=== PATIENT | male | born 1940 | race Hispanic/Latino ===

== ENCOUNTER 2018-01-14 19:16 | Inpatient (IN) | payer OTHER, MEDICARE ==
[~2018-01-14] VITALS: Ht 180.3 cm; Wt 116.1 kg
[2018-01-14] MEDS ORDERED: ONDANSETRON HCL 4 MG/2 ML VIAL ONE (19:41)
[2018-01-14 19:59] LABS: BASOPHILS % (AUTO) 0.2 % (0.0-5.0); EOSINOPHILS % (AUTO) 0.5 % (0.0-8.0); LYMPHOCYTES % (AUTO) 13.1 % (21.0-51.0); MEAN CORPUSCULAR HEMOGLOBIN 31.8 pg (27.0-33.0); MEAN CORPUSCULAR HGB CONC 33.3 g/dL (32.0-36.0); MEAN CORPUSCULAR VOLUME 95.3 fL (79-99); MONOCYTES % (AUTO) 11.6 % (3.0-13.0); NEUTROPHILS % (AUTO) 74.6 % (40.0-77.0); PLATELET COUNT (AUTO) 166 K/uL (130-400); RED BLOOD CELL COUNT(AUTO) 3.77 MIL/uL (4.50-6.20); RED CELL DISTRIBUTION WIDTH 14.6 % (11.0-15.5); WHITE BLOOD COUNT (AUTO) 7.5 K/uL (4.8-10.8)
[2018-01-14 20:02] LABS: CREATININE 0.8 mg/dL (0.5-1.5); POTASSIUM 4.1 mmol/L (3.5-5.1)
[2018-01-14 20:07] LABS: ALBUMIN 3.2 g/dL (3.5-5.0); BILIRUBIN,TOTAL 1.8 mg/dL (0.2-1.0); TOTAL PROTEIN, SERUM 7.6 g/dL (6.0-8.3)
[2018-01-14 20:15] LABS: APPEARANCE,URINE Cloudy (CLEAR); BILIRUBIN,URINE Small (NEGATIVE); COLOR,URINE Dark Yellow (YELLOW); GLUCOSE, URINE (UA) Negative (NEGATIVE); KETONES,URINE Negative (NEGATIVE); LEUKOCYTE ESTERASE ,URINE Trace (NEGATIVE); NITRATE,URINE Positive (NEGATIVE); OCCULT BLOOD,URINE Negative (NEGATIVE); PH,URINE 6.5 (5.0-8.0); PROTEIN,URINE POS 1+ (NEGATIVE)
[2018-01-14 20:47] LABS: BACTERIA,URINE Many /HPF (None Seen)
[2018-01-14 20:48] LABS: MUCUS,URINE Few LPF (None Seen); RBC,URINE None Seen /HPF (0-1)
[2018-01-14] MEDS ORDERED: MORPHINE SULFATE 4 MG/1ML SYG ONE (21:37)
[2018-01-14] MEDS ORDERED: MORPHINE SULFATE 2 MG/ML 1ML SYG IVP PRN (22:00)
[2018-01-14] MEDS ORDERED: ONDANSETRON HCL 4 MG/2 ML VIAL IVP PRN (22:00)
[2018-01-14 23:06] VITALS: BP 118/44
[2018-01-15] MEDS ORDERED: HYDRALAZINE HCL 20 MG/ML VIAL IV PRN (03:00)
[2018-01-15] MEDS ORDERED: ACETAMINOPHEN 325 MG TAB PO PRN (03:00)
[2018-01-15 04:21] VITALS: BP 115/44
[2018-01-15 05:52] LABS: BASOPHILS % (AUTO) 0.3 % (0.0-5.0); EOSINOPHILS % (AUTO) 0.3 % (0.0-8.0); HEMATOCRIT 36.4 % (42-54); LYMPHOCYTES % (AUTO) 14.7 % (21.0-51.0); MEAN CORPUSCULAR HEMOGLOBIN 31.9 pg (27.0-33.0); MEAN CORPUSCULAR HGB CONC 32.8 g/dL (32.0-36.0); MONOCYTES % (AUTO) 18.3 % (3.0-13.0); NEUTROPHILS % (AUTO) 66.4 % (40.0-77.0); NUCLEATED RED BLOOD CELLS 0.1 % (0.0-0.19); PLATELET COUNT (AUTO) 153 K/uL (130-400); RED BLOOD CELL COUNT(AUTO) 3.75 MIL/uL (4.50-6.20); WHITE BLOOD COUNT (AUTO) 6.3 K/uL (4.8-10.8)
[2018-01-15 06:06] LABS: POTASSIUM 4.1 mmol/L (3.5-5.1)
[2018-01-15 06:17] LABS: BAND NEUTROPHILS % (MANUAL) 7 % (0-2); LYMPHOCYTES % (MANUAL) 16 % (22-44); MONOCYTES % (MANUAL) 17 % (2-9); REACTIVE LYMPHOCYTES 1 % (0-0); SEGMENTED NEUTROPHILS % 59 % (40-70)
[2018-01-15 06:18] LABS: MAN.DIFF COMMENT-IMPRESSION MANUAL DIFFERENTIAL; PLATELET MORPHOLOGY COMMENT ADEQUATE
[2018-01-15] MEDS ORDERED: PNEUMOCOCCAL VACCINE POLYVALENT 0.5 ML/VIAL [PPV] IM ONE (06:30)
[2018-01-15] MEDS ORDERED: FLU VACC QS2017-18 36MOS UP/PF 60 MCG/0.5 ML ML IM ONE ×2 (06:30→08:43)
[2018-01-15 08:08] VITALS: BP 103/52
[2018-01-15] MEDS: FAMOTIDINE/PF 20 MG/2 ML VIAL IV SCH ×2 (08:45→20:06)
[2018-01-15] MEDS: CEFTRIAXONE SODIUM 2 GM VIAL IVP SCH ×2 (08:45→20:06)
[2018-01-15] MEDS: SODIUM CHLORIDE 0.9% 1000ML 1,000 ML IV SCH ×4 (08:47→21:42)
[2018-01-15] MEDS ORDERED: CEFTRIAXONE 2GM+NS 100ML 100 ML IV SCH (09:00)
[2018-01-15] MEDS ORDERED: PNEUMOCOCCAL VACCINE POLYVALENT 0.5 ML/VIAL [PPV] ONE (10:11)
[2018-01-15 11:14] VITALS: BP 112/58
[2018-01-15] MEDS ORDERED: IOPAMIDOL-370 75 ML VIAL IV ONE (12:38)
[2018-01-15] MEDS ORDERED: DEXTROSE 50%-WATER 50 ML DISP.SYRIN IV PRN (13:00)
[2018-01-15] MEDS ORDERED: GLUCAGON 1MG KIT 1 MG ML IM PRN (13:00)
[2018-01-15] MEDS: INSULIN HUMULIN R 100 UNIT/ML 3ML SQ SCH ×2 (16:30→20:06)
[2018-01-15 16:50] VITALS: BP 136/71
[2018-01-15] MEDS ORDERED: METO-408 PO (19:11)
[2018-01-15] MEDS ORDERED: LISI-617 PO (19:11)
[2018-01-15] MEDS ORDERED: TRAZ150T79 PO (19:11)
[2018-01-15] MEDS ORDERED: MIRA50TA PO (19:11)
[2018-01-15] MEDS ORDERED: SOLI10TA PO (19:11)
[2018-01-15] MEDS ORDERED: XALA2.5OS OD (19:11)
[2018-01-15] MEDS ORDERED: METF500T6 PO (19:11)
[2018-01-15] MEDS ORDERED: FLUT1AER IH (19:11)
[2018-01-15] MEDS ORDERED: WARF-57 PO (19:11)
[2018-01-15] MEDS ORDERED: DUTA0.5C15 PO (19:11)
[2018-01-15] MEDS ORDERED: ESOM40CA54 PO (19:11)
[2018-01-15 19:27] VITALS: BP 143/74
[2018-01-15 23:46] VITALS: BP 110/51
[2018-01-16 04:34] VITALS: BP 115/51
[2018-01-16 04:49] LABS: HEMATOCRIT 30.9 % (42-54); MEAN CORPUSCULAR HEMOGLOBIN 33.2 pg (27.0-33.0); MEAN CORPUSCULAR HGB CONC 34.7 g/dL (32.0-36.0); MEAN CORPUSCULAR VOLUME 95.7 fL (79-99); NUCLEATED RED BLOOD CELLS 0.1 % (0.0-0.19); PLATELET COUNT (AUTO) 131 K/uL (130-400); RED BLOOD CELL COUNT(AUTO) 3.23 MIL/uL (4.50-6.20); RED CELL DISTRIBUTION WIDTH 14.6 % (11.0-15.5); WHITE BLOOD COUNT (AUTO) 4.2 K/uL (4.8-10.8)
[2018-01-16 05:25] LABS: INR 2.48 (0.85-1.15); PARTIAL THROMBOPLASTIN TIME 36.6 SEC (26.3-35.5); PROTHROMBIN TIME 25.6 SEC (9.6-11.6)
[2018-01-16 05:40] LABS: ALBUMIN 2.4 g/dL (3.5-5.0); BILIRUBIN,DIRECT 0.5 mg/dL (0.0-0.3); BILIRUBIN,TOTAL 0.9 mg/dL (0.2-1.0); CREATININE 0.6 mg/dL (0.5-1.5); MAGNESIUM 1.6 mg/dL (1.80-2.40); POTASSIUM 3.4 mmol/L (3.5-5.1)
[2018-01-16] MEDS: SODIUM CHLORIDE 0.9% 1000ML 1,000 ML IV SCH ×3 (05:49→21:55)
[2018-01-16] MEDS: INSULIN HUMULIN R 100 UNIT/ML 3ML SQ SCH ×4 (05:59→20:10)
[2018-01-16] MEDS: FAMOTIDINE/PF 20 MG/2 ML VIAL IV SCH ×2 (07:50→19:52)
[2018-01-16] MEDS: CEFTRIAXONE SODIUM 2 GM VIAL IVP SCH ×2 (07:50→19:52)
[2018-01-16 08:08] VITALS: BP 132/70
[2018-01-16] MEDS ORDERED: POTASSIUM CHLORIDE 20MEQ/100ML 100 ML IV PRN (08:45)
[2018-01-16] MEDS ORDERED: LIDOCAINE HCL-MPF 1% 2ML VIAL IVP PRN (08:45)
[2018-01-16] MEDS ORDERED: POTASSIUM CHLORIDE 10% ELIXIR 20 MEQ/15 ML UDCUP PO PRN (08:45)
[2018-01-16] MEDS: **HM** DUTASTERIDE 0.5MG PO SCH (09:00)
[2018-01-16] MEDS: **HM** VESICARE 10MG PO SCH (09:00)
[2018-01-16] MEDS: **HM** MYRBETRIQ 50MG PO SCH (09:00)
[2018-01-16] MEDS: METFORMIN HCL 500 MG TABLET PO SCH ×3 (09:23→20:10)
[2018-01-16] MEDS: LISINOPRIL 5 MG TABLET PO SCH (09:23)
[2018-01-16] MEDS: METOPROLOL TARTRATE 25 MG TAB PO SCH ×2 (09:23→19:53)
[2018-01-16] MEDS: POTASSIUM CHLORIDE 20 MEQ ERTAB PO PRN ×2 (09:24→13:59)
[2018-01-16] MEDS: MAGNESIUM 2GM PREMIX 50ML 50 ML IV SCH (09:25)
[2018-01-16] MEDS ORDERED: ALBUTEROL SULFATE 0.083% 2.5 MG/3 ML INH IH ONE (10:03)
[2018-01-16] MEDS: ALBUTEROL SULFATE 0.083% 2.5 MG/3 ML INH IH SCH ×3 (10:07→23:07)
[2018-01-16 11:31] VITALS: BP 141/83
[2018-01-16] MEDS: LACTULOSE 20 GM/30 ML UDCUP PO PRN (13:59)
[2018-01-16 16:03] VITALS: BP 140/72
[2018-01-16] MEDS: BUDESONIDE 0.5 MG/2 ML INH IH SCH (18:39)
[2018-01-16 19:38] VITALS: BP 150/79
[2018-01-16] MEDS: LATANOPROST 2.5 ML DROPS OD SCH (19:53)
[2018-01-16] MEDS: TRAZODONE HCL 100 MG TABLET PO SCH (19:54)
[2018-01-16 23:38] VITALS: BP 137/75
[2018-01-17 04:23] VITALS: BP 133/65
[2018-01-17] MEDS: SODIUM CHLORIDE 0.9% 1000ML 1,000 ML IV SCH ×3 (05:24→21:57)
[2018-01-17] MEDS: BUDESONIDE 0.5 MG/2 ML INH IH SCH ×2 (06:03→19:33)
[2018-01-17] MEDS: ALBUTEROL SULFATE 0.083% 2.5 MG/3 ML INH IH SCH ×3 (06:03→19:33)
[2018-01-17] MEDS: INSULIN HUMULIN R 100 UNIT/ML 3ML SQ SCH ×4 (06:55→20:24)
[2018-01-17 07:30] VITALS: BP 155/68
[2018-01-17 08:00] LABS: INR 2.02 (0.85-1.15); PROTHROMBIN TIME 20.9 SEC (9.6-11.6)
[2018-01-17] MEDS: METOPROLOL TARTRATE 25 MG TAB PO SCH ×2 (08:54→19:14)
[2018-01-17] MEDS: LISINOPRIL 5 MG TABLET PO SCH (08:55)
[2018-01-17] MEDS: **HM** MYRBETRIQ 50MG PO SCH (08:55)
[2018-01-17] MEDS: **HM** VESICARE 10MG PO SCH (08:55)
[2018-01-17] MEDS: **HM** DUTASTERIDE 0.5MG PO SCH (08:55)
[2018-01-17] MEDS: FAMOTIDINE/PF 20 MG/2 ML VIAL IV SCH ×2 (08:55→19:14)
[2018-01-17] MEDS: METFORMIN HCL 500 MG TABLET PO SCH ×3 (08:56→19:14)
[2018-01-17] MEDS: CEFTRIAXONE SODIUM 2 GM VIAL IVP SCH ×2 (08:56→19:14)
[2018-01-17 11:00] VITALS: BP 136/75
[2018-01-17 16:00] VITALS: BP 141/74
[2018-01-17 16:14] LABS: INR 1.8 (0.85-1.15); PROTHROMBIN TIME 18.7 SEC (9.6-11.6)
[2018-01-17] MEDS: TRAZODONE HCL 100 MG TABLET PO SCH (19:13)
[2018-01-17] MEDS: LATANOPROST 2.5 ML DROPS OD SCH (19:14)
[2018-01-17 19:44] VITALS: BP 144/70
[2018-01-17 23:44] VITALS: BP 138/72
[2018-01-18] MEDS: ALBUTEROL SULFATE 0.083% 2.5 MG/3 ML INH IH SCH ×4 (01:07→19:34)
[2018-01-18 04:44] VITALS: BP 130/72
[2018-01-18 05:21] LABS: MEAN CORPUSCULAR HEMOGLOBIN 33.1 pg (27.0-33.0); MEAN CORPUSCULAR HGB CONC 34.6 g/dL (32.0-36.0); MEAN CORPUSCULAR VOLUME 95.7 fL (79-99); PLATELET COUNT (AUTO) 179 K/uL (130-400); RED BLOOD CELL COUNT(AUTO) 3.35 MIL/uL (4.50-6.20); RED CELL DISTRIBUTION WIDTH 14.8 % (11.0-15.5); WHITE BLOOD COUNT (AUTO) 4.5 K/uL (4.8-10.8)
[2018-01-18 05:30] LABS: INR 1.59 (0.85-1.15); PROTHROMBIN TIME 16.5 SEC (9.6-11.6)
[2018-01-18 05:34] LABS: CREATININE 0.6 mg/dL (0.5-1.5); MAGNESIUM 1.7 mg/dL (1.80-2.40); POTASSIUM 3.6 mmol/L (3.5-5.1)
[2018-01-18] MEDS: INSULIN HUMULIN R 100 UNIT/ML 3ML SQ SCH ×4 (06:39→20:33)
[2018-01-18] MEDS: BUDESONIDE 0.5 MG/2 ML INH IH SCH ×2 (07:01→19:34)
[2018-01-18 07:51] VITALS: BP 136/65
[2018-01-18] MEDS: METFORMIN HCL 500 MG TABLET PO SCH ×3 (08:43→19:37)
[2018-01-18] MEDS: CEFTRIAXONE SODIUM 2 GM VIAL IVP SCH ×2 (08:43→19:37)
[2018-01-18] MEDS: METOPROLOL TARTRATE 25 MG TAB PO SCH ×2 (08:44→19:38)
[2018-01-18] MEDS: LISINOPRIL 5 MG TABLET PO SCH (08:44)
[2018-01-18] MEDS: FAMOTIDINE/PF 20 MG/2 ML VIAL IV SCH ×2 (08:44→19:37)
[2018-01-18] MEDS: **HM** VESICARE 10MG PO SCH (09:00)
[2018-01-18] MEDS: **HM** MYRBETRIQ 50MG PO SCH (09:00)
[2018-01-18] MEDS: **HM** DUTASTERIDE 0.5MG PO SCH (09:00)
[2018-01-18] MEDS ORDERED: MAGNESIUM 2GM PREMIX 50ML 50 ML IV SCH (09:45)
[2018-01-18] MEDS: SODIUM CHLORIDE 0.9% 1000ML 1,000 ML IV SCH ×2 (10:02→23:01)
[2018-01-18 11:59] VITALS: BP 135/67
[2018-01-18 16:23] VITALS: BP 150/74
[2018-01-18] MEDS: LATANOPROST 2.5 ML DROPS OD SCH (19:37)
[2018-01-18] MEDS: TRAZODONE HCL 100 MG TABLET PO SCH (19:37)
[2018-01-18] MEDS: LACTULOSE 20 GM/30 ML UDCUP PO PRN (19:37)
[2018-01-18 19:44] VITALS: BP 159/71
[2018-01-18] MEDS ORDERED: ONDANSETRON HCL MDV 20ML 2 MG/ML VIAL ONE (22:15)
[2018-01-19 00:36] VITALS: BP 124/70
[2018-01-19] MEDS: ALBUTEROL SULFATE 0.083% 2.5 MG/3 ML INH IH SCH ×5 (00:36→23:04)
[2018-01-19 03:49] VITALS: BP 106/53
[2018-01-19 05:28] LABS: CREATININE 0.5 mg/dL (0.5-1.5); MAGNESIUM 1.6 mg/dL (1.80-2.40); POTASSIUM 3.8 mmol/L (3.5-5.1)
[2018-01-19] MEDS: BUDESONIDE 0.5 MG/2 ML INH IH SCH ×2 (06:12→19:31)
[2018-01-19] MEDS: INSULIN HUMULIN R 100 UNIT/ML 3ML SQ SCH ×4 (06:30→20:56)
[2018-01-19 07:30] VITALS: BP 116/52
[2018-01-19] MEDS: FAMOTIDINE/PF 20 MG/2 ML VIAL IV SCH ×2 (08:20→20:03)
[2018-01-19] MEDS: CEFTRIAXONE SODIUM 2 GM VIAL IVP SCH ×2 (08:20→20:03)
[2018-01-19] MEDS: METFORMIN HCL 500 MG TABLET PO SCH ×3 (08:21→20:02)
[2018-01-19] MEDS: LISINOPRIL 5 MG TABLET PO SCH (08:22)
[2018-01-19] MEDS: **HM** VESICARE 10MG PO SCH (08:22)
[2018-01-19] MEDS: METOPROLOL TARTRATE 25 MG TAB PO SCH ×2 (08:22→20:03)
[2018-01-19] MEDS: **HM** DUTASTERIDE 0.5MG PO SCH (08:22)
[2018-01-19] MEDS: **HM** MYRBETRIQ 50MG PO SCH (08:22)
[2018-01-19] MEDS ORDERED: MAGNESIUM 2GM PREMIX 50ML 50 ML IV SCH (08:45)
[2018-01-19 08:49] LABS: INR 1.37 (0.85-1.15); PROTHROMBIN TIME 14.3 SEC (9.6-11.6)
[2018-01-19 11:00] VITALS: BP 101/50
[2018-01-19 16:00] VITALS: BP 127/58
[2018-01-19] MEDS: MAGNESIUM 2GM PREMIX 50ML 50 ML IV SCH (16:26)
[2018-01-19 20:03] VITALS: BP 131/68
[2018-01-19] MEDS: TRAZODONE HCL 100 MG TABLET PO SCH (20:03)
[2018-01-19] MEDS: LATANOPROST 2.5 ML DROPS OD SCH (20:09)
[2018-01-19] MEDS: SODIUM CHLORIDE 0.9% 1000ML 1,000 ML IV SCH (20:10)
[2018-01-20] VITALS (34 sets, daily range): BP systolic 62–141; BP diastolic 32–82
[2018-01-20 04:55] LABS: MEAN CORPUSCULAR HEMOGLOBIN 31.6 pg (27.0-33.0); MEAN CORPUSCULAR HGB CONC 32.9 g/dL (32.0-36.0); MEAN CORPUSCULAR VOLUME 96.2 fL (79-99); PLATELET COUNT (AUTO) 160 K/uL (130-400); RED BLOOD CELL COUNT(AUTO) 3.22 MIL/uL (4.50-6.20); RED CELL DISTRIBUTION WIDTH 14.7 % (11.0-15.5); WHITE BLOOD COUNT (AUTO) 4.1 K/uL (4.8-10.8)
[2018-01-20 05:07] LABS: CREATININE 0.5 mg/dL (0.5-1.5); MAGNESIUM 1.9 mg/dL (1.80-2.40); POTASSIUM 3.6 mmol/L (3.5-5.1)
[2018-01-20 05:42] LABS: INR 1.41 (0.85-1.15); PARTIAL THROMBOPLASTIN TIME 29.5 SEC (26.3-35.5); PROTHROMBIN TIME 14.7 SEC (9.6-11.6)
[2018-01-20] MEDS: ALBUTEROL SULFATE 0.083% 2.5 MG/3 ML INH IH SCH ×2 (05:52→18:48)
[2018-01-20] MEDS: BUDESONIDE 0.5 MG/2 ML INH IH SCH ×2 (06:02→18:59)
[2018-01-20] MEDS: INSULIN HUMULIN R 100 UNIT/ML 3ML SQ SCH ×4 (06:14→21:00)
[2018-01-20] MEDS: FAMOTIDINE/PF 20 MG/2 ML VIAL IV SCH ×2 (08:44→22:36)
[2018-01-20] MEDS: METFORMIN HCL 500 MG TABLET PO SCH ×3 (08:44→21:00)
[2018-01-20] MEDS: CEFTRIAXONE SODIUM 2 GM VIAL IVP SCH ×2 (08:44→23:41)
[2018-01-20] MEDS: **HM** DUTASTERIDE 0.5MG PO SCH (08:45)
[2018-01-20] MEDS: METOPROLOL TARTRATE 25 MG TAB PO SCH ×2 (08:45→21:00)
[2018-01-20] MEDS: LISINOPRIL 5 MG TABLET PO SCH (08:45)
[2018-01-20] MEDS: **HM** MYRBETRIQ 50MG PO SCH (08:45)
[2018-01-20] MEDS: **HM** VESICARE 10MG PO SCH (08:45)
[2018-01-20] MEDS ORDERED: SUCCINYLCHOLINE 200MG/10ML SYR ONE (11:28)
[2018-01-20] MEDS ORDERED: DEXAMETHASONE SOD PHOSPHATE 10MG/ML 1ML VIAL ONE (11:28)
[2018-01-20] MEDS ORDERED: LIDOCAINE PF 2% 5ML ABBOJECT ONE (11:28)
[2018-01-20] MEDS ORDERED: PROPOFOL 10 MG/ML 20ML VIAL IV ONE (11:30)
[2018-01-20] MEDS ORDERED: FENTANYL CITRATE PF 50 MCG/1 ML 2ML VIAL ONE (11:30)
[2018-01-20] MEDS ORDERED: MIDAZOLAM HCL 1 MG/ML 2ML VIAL ONE (11:30)
[2018-01-20] MEDS ORDERED: CITRIC ACID/SODIUM CITRATE 30 ML UDCUP ONE (12:18)
[2018-01-20] MEDS ORDERED: BUPIVACAINE/PF 0.5% 30ML VIAL ONE (13:51)
[2018-01-20] MEDS: SODIUM CHLORIDE 0.9% 1000ML 1,000 ML IV SCH ×4 (15:01→23:36)
[2018-01-20] MEDS ORDERED: FLUMAZENIL 0.1MG/1ML 5ML VIAL IV SCH (19:38)
[2018-01-20] MEDS ORDERED: SODIUM BICARB 50MEQ 50ML VIAL IV STA (19:51)
[2018-01-20 20:52] LABS: HEMATOCRIT 30.7 % (42-54); MEAN CORPUSCULAR HEMOGLOBIN 32.5 pg (27.0-33.0); MEAN CORPUSCULAR HGB CONC 33.3 g/dL (32.0-36.0); MEAN CORPUSCULAR VOLUME 97.6 fL (79-99); PLATELET COUNT (AUTO) 205 K/uL (130-400); RED BLOOD CELL COUNT(AUTO) 3.15 MIL/uL (4.50-6.20); RED CELL DISTRIBUTION WIDTH 14.8 % (11.0-15.5)
[2018-01-20 21:00] LABS: CREATININE 0.9 mg/dL (0.5-1.5); POTASSIUM 4.1 mmol/L (3.5-5.1)
[2018-01-20] MEDS: TRAZODONE HCL 100 MG TABLET PO SCH (21:00)
[2018-01-20 21:05] LABS: ALBUMIN 2.5 g/dL (3.5-5.0); BILIRUBIN,TOTAL 0.8 mg/dL (0.2-1.0); TOTAL PROTEIN, SERUM 5.9 g/dL (6.0-8.3)
[2018-01-20 21:07] LABS: ABG BASE EXCESS -0.4 mmol/L (-2.0-3.0); ABG HCO3 30.8 mmol/L (21.0-28.0); ABG OXYGEN SATURATION 96.4 % (95.0-99.0); ABG PCO2 85 mmHg (35-48)
[2018-01-20] MEDS ORDERED: NOREPINEPHRINE 4MG/NS 250ML 250 ML IV SCH (21:45)
[2018-01-20] MEDS ORDERED: NALOXONE HCL 0.4 MG/1 ML ML IVP SCH (21:45)
[2018-01-20] MEDS ORDERED: NALOXONE HCL 0.4 MG/1 ML ML ONE (21:55)
[2018-01-20] MEDS: LATANOPROST 2.5 ML DROPS OD SCH (22:32)
[2018-01-20 22:48] LABS: CREATINE KINASE MB 2.1 ng/mL (0.5-3.6); CREATINE KINASE, TOTAL 45 U/L (21-232); MYOGLOBIN 67 ng/mL (10-92); TROPONIN I < 0.04 ng/mL (0.00-0.06)
[2018-01-20 23:01] LABS: ABG BASE EXCESS -3.5 mmol/L (-2.0-3.0); ABG HCO3 28.1 mmol/L (21.0-28.0); ABG OXYGEN SATURATION 95.6 % (95.0-99.0); ABG PCO2 86 mmHg (35-48)
[2018-01-20] MEDS ORDERED: CEFTRIAXONE SODIUM 2 GM VIAL ONE ×2 (23:27→23:37)
[2018-01-20] MEDS ORDERED: SODIUM CHLORIDE 0.9% 100 ML IV ONE (23:37)
[2018-01-21] VITALS (18 sets, daily range): BP systolic 78–173; BP diastolic 29–89
[2018-01-21] MEDS: ALBUTEROL SULFATE 0.083% 2.5 MG/3 ML INH IH SCH ×3 (00:09→17:57)
[2018-01-21] MEDS: INSULIN HUMULIN R 100 UNIT/ML 3ML SQ SCH ×4 (05:46→21:00)
[2018-01-21] MEDS: BUDESONIDE 0.5 MG/2 ML INH IH SCH ×2 (06:22→18:04)
[2018-01-21 07:04] LABS: ABG BASE EXCESS 0.2 mmol/L (-2.0-3.0); ABG HCO3 28.3 mmol/L (21.0-28.0); ABG OXYGEN SATURATION 97.4 % (95.0-99.0); ABG PCO2 60 mmHg (35-48)
[2018-01-21 07:49] LABS: HEMATOCRIT 32.2 % (42-54); MEAN CORPUSCULAR HEMOGLOBIN 31.6 pg (27.0-33.0); MEAN CORPUSCULAR HGB CONC 32.6 g/dL (32.0-36.0); PLATELET COUNT (AUTO) 186 K/uL (130-400); RED BLOOD CELL COUNT(AUTO) 3.33 MIL/uL (4.50-6.20); RED CELL DISTRIBUTION WIDTH 15.4 % (11.0-15.5)
[2018-01-21 07:53] LABS: CREATININE 0.9 mg/dL (0.5-1.5); POTASSIUM 4.1 mmol/L (3.5-5.1)
[2018-01-21 08:28] LABS: MAN.DIFF COMMENT-IMPRESSION MANUAL DIFFERENTIAL
[2018-01-21 08:36] LABS: BAND NEUTROPHILS % (MANUAL) 3 % (0-2); LYMPHOCYTES % (MANUAL) 3 % (22-44); MONOCYTES % (MANUAL) 9 % (2-9); SEGMENTED NEUTROPHILS % 85 % (40-70)
[2018-01-21 08:37] LABS: PLATELET MORPHOLOGY COMMENT ADEQUATE
[2018-01-21] MEDS: METOPROLOL TARTRATE 25 MG TAB PO SCH ×2 (08:38→21:08)
[2018-01-21] MEDS: FAMOTIDINE/PF 20 MG/2 ML VIAL IV SCH ×2 (08:38→21:08)
[2018-01-21] MEDS: CEFTRIAXONE SODIUM 2 GM VIAL IVP SCH ×2 (08:54→21:08)
[2018-01-21] MEDS: **HM** MYRBETRIQ 50MG PO SCH (09:00)
[2018-01-21] MEDS: **HM** DUTASTERIDE 0.5MG PO SCH (09:00)
[2018-01-21] MEDS: **HM** VESICARE 10MG PO SCH (09:00)
[2018-01-21] MEDS ORDERED: KETOROLAC TROMETHAMINE 15MG/ML IV PRN (09:15)
[2018-01-21] MEDS: IPRATROPIUM/ALBUTEROL SULFATE 3 ML SOLUTION IH SCH ×2 (11:37→17:59)
[2018-01-21 13:01] LABS: ABG BASE EXCESS 6.2 mmol/L (-2.0-3.0); ABG HCO3 31.4 mmol/L (21.0-28.0); ABG OXYGEN SATURATION 98.9 % (95.0-99.0); ABG PCO2 47 mmHg (35-48)
[2018-01-21] MEDS: LISINOPRIL 5 MG TABLET PO SCH (13:30)
[2018-01-21] MEDS: METRONIDAZOLE 500MG/100ML BAG 100 ML IV SCH ×2 (14:04→21:19)
[2018-01-21] MEDS ORDERED: WARFARIN SODIUM 5 MG TAB PO SCH (15:45)
[2018-01-21 16:04] LABS: INR 1.99 (0.85-1.15); PROTHROMBIN TIME 20.6 SEC (9.6-11.6)
[2018-01-21] MEDS ORDERED: HALOPERIDOL LACTATE 5 MG/ML VIAL IM PRN (19:30)
[2018-01-21] MEDS: LATANOPROST 2.5 ML DROPS OD SCH (21:11)
[2018-01-22] MEDS: IPRATROPIUM/ALBUTEROL SULFATE 3 ML SOLUTION IH SCH ×4 (00:24→18:38)
[2018-01-22 03:46] VITALS: BP 152/71
[2018-01-22 04:16] LABS: CREATININE 0.8 mg/dL (0.5-1.5); POTASSIUM 3.7 mmol/L (3.5-5.1)
[2018-01-22 04:17] LABS: HEMATOCRIT 29.1 % (42-54); MEAN CORPUSCULAR HEMOGLOBIN 33.7 pg (27.0-33.0); MEAN CORPUSCULAR HGB CONC 34.9 g/dL (32.0-36.0); MEAN CORPUSCULAR VOLUME 96.8 fL (79-99); PLATELET COUNT (AUTO) 179 K/uL (130-400); RED BLOOD CELL COUNT(AUTO) 3.01 MIL/uL (4.50-6.20); WHITE BLOOD COUNT (AUTO) 8.7 K/uL (4.8-10.8)
[2018-01-22] MEDS ORDERED: LORAZEPAM 2 MG/ML 1 ML VIAL IVP ONE (05:15)
[2018-01-22] MEDS: METRONIDAZOLE 500MG/100ML BAG 100 ML IV SCH ×2 (05:42→14:54)
[2018-01-22] MEDS: POTASSIUM CHLORIDE 20 MEQ ERTAB PO PRN (05:43)
[2018-01-22] MEDS: INSULIN HUMULIN R 100 UNIT/ML 3ML SQ SCH ×4 (05:43→20:46)
[2018-01-22] MEDS: SODIUM CHLORIDE 0.9% 1000ML 1,000 ML IV SCH (05:44)
[2018-01-22] MEDS: ALBUTEROL SULFATE 0.083% 2.5 MG/3 ML INH IH SCH ×2 (06:00)
[2018-01-22] MEDS: BUDESONIDE 0.5 MG/2 ML INH IH SCH ×2 (06:45→18:55)
[2018-01-22 06:52] LABS: BAND NEUTROPHILS % (MANUAL) 1 % (0-2); LYMPHOCYTES % (MANUAL) 6 % (22-44); MONOCYTES % (MANUAL) 5 % (2-9); SEGMENTED NEUTROPHILS % 88 % (40-70)
[2018-01-22 06:53] LABS: MAN.DIFF COMMENT-IMPRESSION MANUAL DIFFERENTIAL
[2018-01-22 06:57] LABS: PLATELET MORPHOLOGY COMMENT ADEQUATE
[2018-01-22 07:25] VITALS: BP 129/52
[2018-01-22] MEDS: LISINOPRIL 5 MG TABLET PO SCH (08:50)
[2018-01-22] MEDS: CEFTRIAXONE SODIUM 2 GM VIAL IVP SCH ×2 (08:50→20:44)
[2018-01-22] MEDS: FAMOTIDINE/PF 20 MG/2 ML VIAL IV SCH (08:50)
[2018-01-22] MEDS: METOPROLOL TARTRATE 25 MG TAB PO SCH ×2 (08:50→20:45)
[2018-01-22] MEDS: **HM** DUTASTERIDE 0.5MG PO SCH (09:00)
[2018-01-22] MEDS: **HM** VESICARE 10MG PO SCH (09:00)
[2018-01-22] MEDS ORDERED: CLINIMIX E 4.25%-5% SOLUTION 2,000 ML IV SCH (09:00)
[2018-01-22] MEDS: **HM** MYRBETRIQ 50MG PO SCH (09:00)
[2018-01-22 11:00] VITALS: BP 135/72
[2018-01-22] MEDS: METRONIDAZOLE 500 MG TABLET PO SCH ×2 (15:52→22:20)
[2018-01-22 15:59] VITALS: BP 129/50
[2018-01-22] MEDS: WARFARIN SODIUM 5 MG TAB PO SCH (16:43)
[2018-01-22 19:36] VITALS: BP 134/60
[2018-01-22] MEDS: LATANOPROST 2.5 ML DROPS OD SCH (20:47)
[2018-01-22 23:19] VITALS: BP 123/60
[2018-01-23] MEDS: IPRATROPIUM/ALBUTEROL SULFATE 3 ML SOLUTION IH SCH ×4 (00:05→18:36)
[2018-01-23] MEDS: SODIUM CHLORIDE 0.9% 1000ML 1,000 ML IV SCH (03:01)
[2018-01-23 03:37] VITALS: BP 147/81
[2018-01-23 04:28] LABS: HEMATOCRIT 28.5 % (42-54); MEAN CORPUSCULAR HEMOGLOBIN 32.1 pg (27.0-33.0); MEAN CORPUSCULAR HGB CONC 33.9 g/dL (32.0-36.0); MEAN CORPUSCULAR VOLUME 94.9 fL (79-99); PLATELET COUNT (AUTO) 166 K/uL (130-400); RED CELL DISTRIBUTION WIDTH 15.3 % (11.0-15.5); WHITE BLOOD COUNT (AUTO) 6.8 K/uL (4.8-10.8)
[2018-01-23 04:34] LABS: INR 2.86 (0.85-1.15); PARTIAL THROMBOPLASTIN TIME 34.3 SEC (26.3-35.5); PROTHROMBIN TIME 29.4 SEC (9.6-11.6)
[2018-01-23 04:40] LABS: CREATININE 0.7 mg/dL (0.5-1.5); MAGNESIUM 1.8 mg/dL (1.80-2.40); PHOSPHORUS 2.2 mg/dL (2.5-4.9); POTASSIUM 3.5 mmol/L (3.5-5.1)
[2018-01-23 05:14] LABS: BAND NEUTROPHILS % (MANUAL) 2 % (0-2); LYMPHOCYTES % (MANUAL) 18 % (22-44); MAN.DIFF COMMENT-IMPRESSION MANUAL DIFFERENTIAL; MONOCYTES % (MANUAL) 5 % (2-9); PLATELET MORPHOLOGY COMMENT ADEQUATE; SEGMENTED NEUTROPHILS % 75 % (40-70)
[2018-01-23] MEDS: METRONIDAZOLE 500 MG TABLET PO SCH ×3 (06:02→22:30)
[2018-01-23] MEDS: POTASSIUM CHLORIDE 20 MEQ ERTAB PO PRN ×2 (06:03→11:20)
[2018-01-23] MEDS: INSULIN HUMULIN R 100 UNIT/ML 3ML SQ SCH ×4 (06:14→21:00)
[2018-01-23] MEDS: BUDESONIDE 0.5 MG/2 ML INH IH SCH ×2 (06:43→18:50)
[2018-01-23] MEDS ORDERED: MAGNESIUM 2GM PREMIX 50ML 50 ML IV SCH (08:00)
[2018-01-23] MEDS ORDERED: POTASSIUM PHOS 15 mMOL+NS250ML 250 ML IV SCH ×2 (08:00→15:30)
[2018-01-23 08:11] VITALS: BP 137/69
[2018-01-23] MEDS: **HM** MYRBETRIQ 50MG PO SCH (09:00)
[2018-01-23] MEDS: CEFTRIAXONE SODIUM 2 GM VIAL IVP SCH ×2 (09:51→22:30)
[2018-01-23] MEDS: LISINOPRIL 5 MG TABLET PO SCH (09:51)
[2018-01-23] MEDS: METOPROLOL TARTRATE 25 MG TAB PO SCH ×2 (09:51→22:34)
[2018-01-23] MEDS: **HM** VESICARE 10MG PO SCH (10:13)
[2018-01-23] MEDS: **HM** DUTASTERIDE 0.5MG PO SCH (10:13)
[2018-01-23] MEDS: PANTOPRAZOLE SODIUM 40 MG TABLET.DR PO SCH (10:13)
[2018-01-23 11:54] VITALS: BP 141/65
[2018-01-23] MEDS: WARFARIN SODIUM 5 MG TAB PO SCH (15:39)
[2018-01-23 16:00] VITALS: BP 144/69
[2018-01-23 21:30] VITALS: BP 153/79
[2018-01-23] MEDS: LATANOPROST 2.5 ML DROPS OD SCH (22:35)
[2018-01-23 23:00] VITALS: BP 151/75
[2018-01-24] MEDS: IPRATROPIUM/ALBUTEROL SULFATE 3 ML SOLUTION IH SCH ×3 (00:28→11:39)
[2018-01-24 03:00] VITALS: BP 141/79
[2018-01-24 05:54] LABS: HEMATOCRIT 30.9 % (42-54); MEAN CORPUSCULAR HEMOGLOBIN 33.1 pg (27.0-33.0); MEAN CORPUSCULAR HGB CONC 34.8 g/dL (32.0-36.0); NUCLEATED RED BLOOD CELLS 0.1 % (0.0-0.19); PLATELET COUNT (AUTO) 183 K/uL (130-400); RED BLOOD CELL COUNT(AUTO) 3.25 MIL/uL (4.50-6.20); RED CELL DISTRIBUTION WIDTH 15.2 % (11.0-15.5); WHITE BLOOD COUNT (AUTO) 7.1 K/uL (4.8-10.8)
[2018-01-24 06:06] LABS: INR 2.32 (0.85-1.15); PARTIAL THROMBOPLASTIN TIME 33.5 SEC (26.3-35.5)
[2018-01-24 06:16] LABS: CREATININE 0.6 mg/dL (0.5-1.5); PHOSPHORUS 2.5 mg/dL (2.5-4.9); POTASSIUM 3.8 mmol/L (3.5-5.1)
[2018-01-24 06:23] LABS: EOSINOPHILS % (MANUAL) 1 % (1-6); LYMPHOCYTES % (MANUAL) 18 % (22-44); MAN.DIFF COMMENT-IMPRESSION MANUAL DIFFERENTIAL; MONOCYTES % (MANUAL) 7 % (2-9); SEGMENTED NEUTROPHILS % 74 % (40-70)
[2018-01-24] MEDS: BUDESONIDE 0.5 MG/2 ML INH IH SCH (07:04)
[2018-01-24] MEDS: PANTOPRAZOLE SODIUM 40 MG TABLET.DR PO SCH (07:16)
[2018-01-24] MEDS: METRONIDAZOLE 500 MG TABLET PO SCH ×2 (07:16→15:15)
[2018-01-24] MEDS: INSULIN HUMULIN R 100 UNIT/ML 3ML SQ SCH ×2 (07:18→11:30)
[2018-01-24 08:00] VITALS: BP 150/79
[2018-01-24] MEDS: **HM** DUTASTERIDE 0.5MG PO SCH (09:00)
[2018-01-24] MEDS: **HM** MYRBETRIQ 50MG PO SCH (09:00)
[2018-01-24] MEDS: **HM** VESICARE 10MG PO SCH (09:00)
[2018-01-24] MEDS: METOPROLOL TARTRATE 25 MG TAB PO SCH (10:06)
[2018-01-24] MEDS: CEFTRIAXONE SODIUM 2 GM VIAL IVP SCH (10:06)
[2018-01-24] MEDS: LISINOPRIL 5 MG TABLET PO SCH (10:06)
[2018-01-24 11:00] VITALS: BP 160/89
[2018-01-24 12:51] VITALS: BP 136/71
== END 2018-01-24 15:20 | disposition home or self-care (01) | DRG 417 ==
LOC: EDH 19:16 → EDHIP 21:44 → OBSVTOIN 21:44 → 4BH 22:35 → 4AH 22:47 → 2BH 01-20 21:52 → 3BH 01-23 21:16
PROVIDERS: ADMIT Family Medicine; ATTEND Family Medicine
PROC: 5A09357 Assistance with Respiratory Ventilation, Less than 24 Consecutive Hours, Continuous Positive Airway Pressure (ICD-10-PCS; 2018-01-15)
PROC: 3E0234Z Introduction of Serum, Toxoid and Vaccine into Muscle, Percutaneous Approach (ICD-10-PCS; 2018-01-15)
PROC: 3E0234Z Introduction of Serum, Toxoid and Vaccine into Muscle, Percutaneous Approach (ICD-10-PCS; 2018-01-15)
PROC: 5A09357 Assistance with Respiratory Ventilation, Less than 24 Consecutive Hours, Continuous Positive Airway Pressure (ICD-10-PCS; 2018-01-16)
PROC: 5A09357 Assistance with Respiratory Ventilation, Less than 24 Consecutive Hours, Continuous Positive Airway Pressure (ICD-10-PCS; 2018-01-17)
PROC: 5A09357 Assistance with Respiratory Ventilation, Less than 24 Consecutive Hours, Continuous Positive Airway Pressure (ICD-10-PCS; 2018-01-18)
PROC: 5A09357 Assistance with Respiratory Ventilation, Less than 24 Consecutive Hours, Continuous Positive Airway Pressure (ICD-10-PCS; 2018-01-19)
PROC: 5A09357 Assistance with Respiratory Ventilation, Less than 24 Consecutive Hours, Continuous Positive Airway Pressure (ICD-10-PCS; 2018-01-20)
PROC: 0FT44ZZ Resection of Gallbladder, Percutaneous Endoscopic Approach (ICD-10-PCS; principal; 2018-01-20 11:37)
PROC: 5A09357 Assistance with Respiratory Ventilation, Less than 24 Consecutive Hours, Continuous Positive Airway Pressure (ICD-10-PCS; 2018-01-21)
PROC: 5A09357 Assistance with Respiratory Ventilation, Less than 24 Consecutive Hours, Continuous Positive Airway Pressure (ICD-10-PCS; 2018-01-22)
PROC: 5A09357 Assistance with Respiratory Ventilation, Less than 24 Consecutive Hours, Continuous Positive Airway Pressure (ICD-10-PCS; 2018-01-23)
PROC: 5A09357 Assistance with Respiratory Ventilation, Less than 24 Consecutive Hours, Continuous Positive Airway Pressure (ICD-10-PCS; 2018-01-24)
DX: K80.62 Calculus of gallbladder and bile duct with acute cholecystitis without obstruction (principal); K85.90 Acute pancreatitis without necrosis or infection, unspecified; J96.21 Acute and chronic respiratory failure with hypoxia; E87.3 Alkalosis; N30.00 Acute cystitis without hematuria; I50.32 Chronic diastolic (congestive) heart failure; I11.0 Hypertensive heart disease with heart failure; I27.21 Secondary pulmonary arterial hypertension; B96.20 Unspecified Escherichia coli [E. coli] as the cause of diseases classified elsewhere; E11.9 Type 2 diabetes mellitus without complications; J96.22 Acute and chronic respiratory failure with hypercapnia; J44.1 Chronic obstructive pulmonary disease with (acute) exacerbation; E66.9 Obesity, unspecified; E87.6 Hypokalemia; G47.33 Obstructive sleep apnea (adult) (pediatric); I25.10 Atherosclerotic heart disease of native coronary artery without angina pectoris; I48.0 Paroxysmal atrial fibrillation; I48.2 Chronic atrial fibrillation; K82.8 Other specified diseases of gallbladder; N40.0 Benign prostatic hyperplasia without lower urinary tract symptoms; Z72.0 Tobacco use; Z79.01 Long term (current) use of anticoagulants; Z80.0 Family history of malignant neoplasm of digestive organs; Z80.42 Family history of malignant neoplasm of prostate; Z85.46 Personal history of malignant neoplasm of prostate; Z87.440 Personal history of urinary (tract) infections; Z95.0 Presence of cardiac pacemaker; Z23 Encounter for immunization
CPT/HCPCS: 36415; 36600; 71045; 74021; 74176; 74177; 76705; 80048; 80053; 80076; 81001; 82150; 82550; 82553; 82803; 82948; 83690; 83735; 83874; 84100; 84132; 84484; 85007; 85025; 85027; 85610; 85730; 87088; 87186; 87804; 88304; 90732; 92610; 93005; 93306; 94640; 94660; 94664; 94760; A4218; A4357; G0008; G0009; J0330; J0696; J1100; J1630; J2001; J2250; J2270; J2310; J2405; J2704; J3010; J3475; J3480; J3490; J7030; Q2038; Q9967

== ENCOUNTER 2018-04-09 07:57 | Emergency (ER) | payer OTHER, MEDICARE ==
[~2018-04-09 07:57] MED LIST: DUTA0.5C17 PO; ESOM40CA54 PO; FLUT1AER IH; LISI-617 PO; METF500T6 PO; METO-408 PO; MIRA50TA PO; SOLI10TA PO; TRAZ150T79 PO; WARF-57 PO; XALA2.5OS OD
== END 2018-04-09 08:56 | disposition home or self-care (01) ==
LOC: EDH 07:57
DX: S90.822A Blister (nonthermal), left foot, initial encounter (principal); S90.821A Blister (nonthermal), right foot, initial encounter; E11.9 Type 2 diabetes mellitus without complications; I10 Essential (primary) hypertension; J44.9 Chronic obstructive pulmonary disease, unspecified; I48.91 Unspecified atrial fibrillation; Z90.49 Acquired absence of other specified parts of digestive tract; Z95.0 Presence of cardiac pacemaker; Z87.891 Personal history of nicotine dependence; X58.XXXA Exposure to other specified factors, initial encounter; Y93.89 Activity, other specified; Y92.098 Other place in other non-institutional residence as the place of occurrence of the external cause; Y99.8 Other external cause status
CPT/HCPCS: 99281

== ENCOUNTER 2018-09-25 05:47 | Observation (INO) | payer OTHER, MEDICARE ==
[2018-09-23 10:51] LABS: BASOPHILS % (AUTO) 0.6 % (0.0-5.0); HEMATOCRIT 28.1 % (42-54); LYMPHOCYTES % (AUTO) 21.7 % (21.0-51.0); MEAN CORPUSCULAR HEMOGLOBIN 26.9 pg (27.0-33.0); MEAN CORPUSCULAR HGB CONC 30.5 g/dL (32.0-36.0); MEAN CORPUSCULAR VOLUME 88.1 fL (79-99); MONOCYTES % (AUTO) 13.7 % (3.0-13.0); PLATELET COUNT (AUTO) 144 K/uL (130-400); RED BLOOD CELL COUNT(AUTO) 3.19 MIL/uL (4.50-6.20); RED CELL DISTRIBUTION WIDTH 17.7 % (11.0-15.5); WHITE BLOOD COUNT (AUTO) 4.1 K/uL (4.8-10.8)
[2018-09-23 10:54] LABS: CREATININE 0.7 mg/dL (0.5-1.5); POTASSIUM 4.2 mmol/L (3.5-5.1)
[2018-09-23 10:57] VITALS: BP 119/62
[2018-09-23 11:30] LABS: INR 1.21 (0.85-1.15); PARTIAL THROMBOPLASTIN TIME 37.2 SEC (26.3-35.5); PROTHROMBIN TIME 12.7 SEC (9.6-11.6)
[~2018-09-25] VITALS: Ht 180.3 cm; Wt 111.9 kg
[2018-09-25] VITALS (20 sets, daily range): BP systolic 102–145; BP diastolic 36–88
[~2018-09-25 05:47] MED LIST changes: +CALC-259 PO; -DUTA0.5C17 PO; +FURO40TA5 PO; +METF-444 PO; -METF500T6 PO; -TRAZ150T79 PO
[2018-09-25] MEDS ORDERED: LIDOCAINE HCL 1% MDV 50ML VIAL ONE (07:12)
[2018-09-25] MEDS ORDERED: CEFAZOLIN SODIUM 1 GM VIAL ONE (07:12)
[2018-09-25] MEDS ORDERED: BUPIVACAINE/PF 0.25% 10ML VIAL IJ ONE (07:12)
[2018-09-25] MEDS ORDERED: TRAZ-187 PO (07:19)
[2018-09-25] MEDS ORDERED: FUROSEMIDE 10 MG/ML 2ML VIAL ONE (07:19)
[2018-09-25] MEDS ORDERED: FLUT16H NS (07:21)
[2018-09-25] MEDS ORDERED: CEFAZOLIN SODIUM 1 GM VIAL IV PRN (08:00)
[2018-09-25] MEDS ORDERED: SODIUM CHLORIDE 0.9% 1000ML 1,000 ML IV PRN (08:00)
[2018-09-25] MEDS ORDERED: ONDANSETRON HCL 4 MG/2 ML VIAL IV PRN ×2 (08:30→17:45)
[2018-09-25] MEDS ORDERED: ACETAMINOPHEN 325 MG TAB PO PRN ×3 (08:30→17:45)
[2018-09-25] MEDS ORDERED: DEXTROSE 50%-WATER 50 ML DISP.SYRIN IV PRN (08:30)
[2018-09-25] MEDS: INSULIN HUMULIN R 100 UNIT/ML 3ML SQ SCH ×4 (11:30→21:00)
[2018-09-25] MEDS ORDERED: CEFAZOLIN SODIUM 1 GM VIAL IVP SCH (14:00)
[2018-09-25] MEDS ORDERED: HYDRALAZINE HCL 20 MG/ML VIAL IV PRN (17:45)
[2018-09-25] MEDS ORDERED: MORPHINE SULFATE 2 MG/ML 1ML SYG IV PRN (17:45)
[2018-09-25] MEDS: IPRATROPIUM/ALBUTEROL SULFATE 3 ML SOLUTION IH SCH ×2 (18:21→23:21)
[2018-09-25] MEDS ORDERED: LATANOPROST 2.5 ML DROPS OD SCH (21:00)
[2018-09-25] MEDS: FLUTICASONE PROPIONATE 50MCG/SPRAY 16 GM BOTTLE NS SCH (21:02)
[2018-09-25] MEDS: METOPROLOL TARTRATE 25 MG TAB PO SCH (21:03)
[2018-09-25] MEDS: FAMOTIDINE/PF 20 MG/2 ML VIAL IV SCH (21:03)
[2018-09-26] VITALS (17 sets, daily range): BP systolic 115–146; BP diastolic 44–96
[2018-09-26 04:19] LABS: HEMATOCRIT 27.1 % (42-54); MEAN CORPUSCULAR HEMOGLOBIN 27.3 pg (27.0-33.0); MEAN CORPUSCULAR HGB CONC 31.9 g/dL (32.0-36.0); MEAN CORPUSCULAR VOLUME 85.5 fL (79-99); PLATELET COUNT (AUTO) 168 K/uL (130-400); RED BLOOD CELL COUNT(AUTO) 3.17 MIL/uL (4.50-6.20)
[2018-09-26 04:28] LABS: CREATININE 0.6 mg/dL (0.5-1.5); POTASSIUM 3.8 mmol/L (3.5-5.1)
[2018-09-26] MEDS: IPRATROPIUM/ALBUTEROL SULFATE 3 ML SOLUTION IH SCH (06:52)
[2018-09-26] MEDS: INSULIN HUMULIN R 100 UNIT/ML 3ML SQ SCH ×2 (07:30)
[2018-09-26] MEDS: METOPROLOL TARTRATE 25 MG TAB PO SCH (08:42)
[2018-09-26] MEDS: FLUTICASONE PROPIONATE 50MCG/SPRAY 16 GM BOTTLE NS SCH (08:43)
[2018-09-26] MEDS: FAMOTIDINE/PF 20 MG/2 ML VIAL IV SCH (08:43)
[2018-09-26] MEDS ORDERED: FUROSEMIDE 40 MG TABLET PO SCH (09:00)
[2018-09-26] MEDS ORDERED: [UNRECOGNIZED DRUG - OTHER] PO SCH (09:00)
[2018-09-26] MEDS ORDERED: CALCIUM CARBONATE PO SCH (09:00)
[2018-09-26] MEDS ORDERED: **HM**Mirabegron (Myrbetriq) 50 MG PO SCH (09:00)
[2018-09-26] MEDS ORDERED: PANTOPRAZOLE SODIUM 40 MG TABLET.DR PO SCH (09:00)
[2018-09-26] MEDS ORDERED: LISINOPRIL 5 MG TABLET PO SCH (09:00)
[2018-09-26] MEDS ORDERED: SOLIFENACIN SUCCINATE 10 MG PO SCH (09:00)
[2018-09-26] MEDS ORDERED: VITAMIN D3 PO SCH (09:00)
== END 2018-09-26 09:50 | disposition home or self-care (01) ==
LOC: DAH 05:47 → DAHIP 05:48 → 2BH 17:39
PROVIDERS: ADMIT Internal Medicine; ATTEND Internal Medicine
DX: I49.5 Sick sinus syndrome (principal); E11.9 Type 2 diabetes mellitus without complications; I11.0 Hypertensive heart disease with heart failure; I50.9 Heart failure, unspecified; I48.2 Chronic atrial fibrillation; J44.9 Chronic obstructive pulmonary disease, unspecified; R06.03 Acute respiratory distress; Z87.891 Personal history of nicotine dependence; Z95.0 Presence of cardiac pacemaker; I25.10 Atherosclerotic heart disease of native coronary artery without angina pectoris; Z82.49 Family history of ischemic heart disease and other diseases of the circulatory system; Z83.3 Family history of diabetes mellitus; Z90.49 Acquired absence of other specified parts of digestive tract; Z79.01 Long term (current) use of anticoagulants
CPT/HCPCS: 80048 ×2; 33228; 36415 ×2; 71045; 82948 ×4; 85025; 85027; 85610; 85730; 93005; 94640 ×3; 94660; 94664; 96374; 96375; A4606; C1785; G0378 ×28; J0690 ×2; J1940; J3490 ×3; J7030

== ENCOUNTER 2018-12-22 20:21 | Emergency (ER) | payer OTHER, MEDICARE ==
[~2018-12-22 20:21] MED LIST changes: +FLUT16H NS; -FLUT1AER IH; +TRAZ-187 PO; -WARF-57 PO
[2018-12-22 20:49] LABS: BASOPHILS % (AUTO) 0.6 % (0.0-5.0); EOSINOPHILS % (AUTO) 1.1 % (0.0-8.0); HEMATOCRIT 27.4 % (42-54); LYMPHOCYTES % (AUTO) 15.5 % (21.0-51.0); MEAN CORPUSCULAR HEMOGLOBIN 25.3 pg (27.0-33.0); MEAN CORPUSCULAR HGB CONC 30.4 g/dL (32.0-36.0); MEAN CORPUSCULAR VOLUME 83.1 fL (79-99); MONOCYTES % (AUTO) 11.5 % (3.0-13.0); NEUTROPHILS % (AUTO) 71.3 % (40.0-77.0); NUCLEATED RED BLOOD CELLS 0.4 % (0.0-0.19); PLATELET COUNT (AUTO) 165 K/uL (130-400); RED CELL DISTRIBUTION WIDTH 19.8 % (11.0-15.5); WHITE BLOOD COUNT (AUTO) 6.4 K/uL (4.8-10.8)
[2018-12-22 21:01] LABS: INR 1.74 (0.85-1.15); PARTIAL THROMBOPLASTIN TIME 32.7 SEC (26.3-35.5); PROTHROMBIN TIME 18.1 SEC (9.6-11.6)
[2018-12-22 21:02] LABS: CREATININE 0.8 mg/dL (0.5-1.5); POTASSIUM 3.9 mmol/L (3.5-5.1)
[2018-12-22 21:07] LABS: BILIRUBIN,TOTAL 0.6 mg/dL (0.2-1.0); TOTAL PROTEIN, SERUM 6.9 g/dL (6.0-8.3)
== END 2018-12-22 23:04 | disposition left against medical advice (07) ==
LOC: EDH 20:21
DX: S06.5X0A Traumatic subdural hemorrhage without loss of consciousness, initial encounter (principal); I48.91 Unspecified atrial fibrillation; J44.9 Chronic obstructive pulmonary disease, unspecified; E11.9 Type 2 diabetes mellitus without complications; I10 Essential (primary) hypertension; M25.561 Pain in right knee; Z91.81 History of falling; Z90.49 Acquired absence of other specified parts of digestive tract; W18.39XA Other fall on same level, initial encounter; Y93.01 Activity, walking, marching and hiking; Y92.89 Other specified places as the place of occurrence of the external cause; Y99.8 Other external cause status
CPT/HCPCS: 36415; 70450; 70486; 71045; 72125; 73562; 80053; 84484; 85025; 85610; 85730; 93005